=== PATIENT | female | born 1930 | race Caucasian/White ===

== ENCOUNTER → 2017-02-09 | Outpatient (CLI) | payer OTHER | LOC: MMPC 10:00 | PROVIDERS: ATTEND Podiatrist Foot & Ankle Surgery | DX: M25.572 Pain in left ankle and joints of left foot (principal); M20.12 Hallux valgus (acquired), left foot; M24.575 Contracture, left foot; M20.42 Other hammer toe(s) (acquired), left foot; M21.622 Bunionette of left foot; G60.9 Hereditary and idiopathic neuropathy, unspecified; I73.9 Peripheral vascular disease, unspecified; L60.9 Nail disorder, unspecified | CPT/HCPCS: 99213; G0463 ==

== ENCOUNTER → 2017-02-16 | Outpatient (CLI) | payer OTHER | LOC: LAB 10:31 | PROVIDERS: ATTEND Internal Medicine | DX: E03.9 Hypothyroidism, unspecified (principal) | CPT/HCPCS: 36415; 84443 ==

== ENCOUNTER → 2017-03-08 | Outpatient (CLI) | payer OTHER ==
--- NOTE | 2017-03-08 14:13 | DI ---
MRI BRAIN W/O CN,03/08/2017 10:55 AM: Clinical History: Headaches Previous Exam: None at this facility. Findings: Multiplanar MR images are obtained through the brain without contrast, and demonstrate diffuse age-re lated volume loss. There are a few scattered areas of increased FLAIR and T2 signal within the perive ntricular white matter most consistent with small vessel ischemic changes. The major vascular flow voids are unremarkable. There is no mass, hemorrhage or midline shift. The midline structures are unremarkable. The posterior fossa is unremarkable. The upper cervical spine is also unremarkable. Paranasal sinuses are within normal limits. There is no abnormally restricted diffusion. Intraorbital structures and paranasal sinuses are unremarkable. Internal auditory canals are also normal. Impression: Normal MRI brain for age.
== END ==
LOC: MRI 10:51
PROVIDERS: ATTEND Neurological Surgery
DX: R51 Headache (principal)
CPT/HCPCS: 70551

== ENCOUNTER → 2017-03-10 | Outpatient (CLI) | payer OTHER ==
--- NOTE | 2017-03-10 13:27 | DI ---
MRI THORACIC SPINE W/O CN,03/10/2017 11:15 AM: Clinical History: Mid back pain. Previous Exam: September 01, 2016 Findings: Multiplanar MR images are obtained through the thoracic spine without contrast. Sagittal and coronal reconstructions are obtained. Alignment is anatomic. The spinal cord descends normally with normal course and caliber and a normal conus at the L1 level. There is some mild anterior wedging throughout which remain stable from the prior exam. There are new densities noted within the T10-12 vertebral bodies most consistent with prior surgery. There are multiple stable broad-based disc bulges noted as well. Vascular structures are unremarkable . Visualized portions of the kidneys and liver are unremarkable. Individual intervertebral disc spaces: T1/2: There are degenerative changes with mild bilateral neural foraminal narrowing. C2/3: No significant stenosis. T3/4: No significant stenosis. T4/5: No significant stenosis. C5/6: No significant stenosis. C6/7: There is a broad-based disc bulge contributing to mild central canal stenosis without significa nt neural foraminal narrowing. No significant stenosis. T7/8: There is a broad-based disc bulge without significant stenosis. T8/9: There is a broad-based disc bulge contributing to mild central canal stenosis without significa nt neural foraminal narrowing. T9/10: There is disc desiccation and some facet hypertrophy without significant central canal stenosi s and mild bilateral neural foraminal narrowing. T10/11: Small broad-based disc bulge with disc desiccation and facet hypertrophy contributing to mode rate left and mild right neuroforaminal narrowing. T. 11/12: There is a broad-based disc bulge with some annular fissuring and facet hypertrophy contrib uting to moderate to severe left and no significant right neural foraminal narrowing. Impression: Essentially no change from the prior exam except for postsurgical changes of the lower thoracic spine .
== END ==
LOC: MRI 10:45
PROVIDERS: ATTEND Neurological Surgery
DX: M54.6 Pain in thoracic spine (principal); M47.24 Other spondylosis with radiculopathy, thoracic region; M51.14 Intervertebral disc disorders with radiculopathy, thoracic region
CPT/HCPCS: 72146

== ENCOUNTER → 2017-03-29 | Outpatient (CLI) | payer OTHER | LOC: MMPC 11:11 | PROVIDERS: ATTEND Internal Medicine | DX: K59.09 Other constipation (principal); E03.9 Hypothyroidism, unspecified; I27.2 Other secondary pulmonary hypertension; E78.5 Hyperlipidemia, unspecified | CPT/HCPCS: 99214; G0463 ==

== ENCOUNTER → 2017-05-11 | Outpatient (CLI) | payer OTHER | LOC: MMPC 10:00 | PROVIDERS: ATTEND Podiatrist Foot & Ankle Surgery | DX: L60.3 Nail dystrophy (principal); L60.0 Ingrowing nail; M20.42 Other hammer toe(s) (acquired), left foot; I73.9 Peripheral vascular disease, unspecified; G60.9 Hereditary and idiopathic neuropathy, unspecified; R60.0 Localized edema | CPT/HCPCS: 11721 ×2; G0463 ==